=== PATIENT | female | born 1945 | race Caucasian/White ===

== ENCOUNTER 2021-12-05 21:47 | Emergency (ER) | payer MEDICARE, SELFPAY ==
[2021-12-05] VITALS (13 sets, daily range): BP systolic 91–108; BP diastolic 61–67; PULSE 65–78; RESP 12–23; TEMP 37.2; O2SAT 96–100
--- NOTE | ~2021-12-05 | CT_ITS ---
EXAMINATION: CT brain wo con DATE: 12/05/2021 22:47 INDICATION: head injury . TECHNIQUE: Computed tomography (CT) of the head was performed without intravenous contrast. The mA wa s adjusted according to patient size. Iterative reconstruction technique was employed. The dose-lengt h product was 605.33 mGy-cm. COMPARISON: None FINDINGS: No acute intracranial hemorrhage or extra-axial fluid collection. No hydrocephalus, mass, or herniation. No acute ischemic infarct. Unremarkable dural venous sinus attenuation. No acute osseous abnormality. The aerated spaces are clear. Moderate atrophy. Moderate chronic white matter change. Chronic left frontal lobe encephalomalacia an d volume loss, with enlargement of the anterior horn. Atherosclerotic intracranial calcification. IMPRESSION: No acute intracranial process. Reviewed, dictated and finalized at location K.
--- NOTE | ~2021-12-05 | XR_ITS ---
EXAM: XR elbow LT min 3V DATE: 12/05/2021 22:42 HISTORY: FALL,PT POOR HISTORIAN . COMPARISON: None available. FINDINGS: Decreased mineralization. No fracture or dislocation. No lytic or blastic lesion. Joint sp aces are maintained. No erosion or periosteal change. Soft tissues within normal limits. IMPRESSION: No acute osseous finding in the left elbow. Reviewed, dictated and finalized at location K.
--- NOTE | ~2021-12-05 | CT_ITS ---
EXAMINATION: CT facial & cervical spine wo DATE: 12/05/2021 22:47 INDICATION: facial inury, head injury TECHNIQUE: Computed tomography (CT) of the maxillofacial region and cervical spine was performed with out intravenous contrast. Automated exposure control and iterative reconstruction technique were empl oyed. The dose-length product was 115.35 mGy-cm. COMPARISON: CT brain, same date FINDINGS: CERVICAL: Vertebral Body Alignment: Intact. Craniocervical and atlantoaxial alignment: Moderate degenerative change. Alignment intact. Osseous structures/fracture: No evidence of a lytic or blastic process in the visualized spine. No e vidence of acute fracture. Cervical soft tissues: The paraspinal soft tissues planes are maintained. Degenerative changes: Multilevel degenerative disc disease, most severe at C5-6, where there is also severe left neural foraminal narrowing. No severe central canal stenosis. FACE: Soft Tissues: No significant superficial soft tissue swelling. Facial bones: No acute fracture. No lytic or blastic process. Eyes: The globes are intact. The soft tissue planes of the orbits are maintained. Paranasal Sinuses: The visualized aerated spaces are clear. Foreign Bodies: No radiopaque foreign bodies. Other Findings: None. IMPRESSION: No acute fracture or traumatic malalignment in the cervical spine. No acute facial bone fracture. Reviewed, dictated and finalized at location K. IMPRESSION: No acute fracture or traumatic malalignment in the cervical spine. No acute fac ial bone fracture.
--- NOTE | 2021-12-05 22:28 | ED.GENADULT ---
HPI - General Adult General Chief complaint: Fall Stated complaint: FALL Time Seen by Provider: 12/05/21 22:08 History of Present Illness HPI narrative: 76-year-old female presenting to the emergency department from a local group home for evaluation after having a ground-level fall. Patient does have an abrasion to her face and to her left elbow. Patient is unaware of any falls or injuries. Patient denies any complaints or pain at this time. Daughter states that the patient has been more fatigued lately. Patient is a DNI DNR. Patient has had decreased p.o. intake over the last few months and has had significant weight loss. Daughter is in discussion with palliative care and is also considering hospice. Related Data Allergies Allergy/AdvReac Type Severity Reaction Status Date / Time No Known Allergies Allergy Verified 12/06/21 00:09 Review of Systems Review of Systems: Patient denies complaints but was unsure if she fell and has severe dementia at baseline. ROS unobtainable: Yes unobtainable due to mental status Exam Narrative: APPEARANCE: Well appearing, no pain, no distress, well-nourished. HEAD: normocephalic, atraumatic. EYES: PERRLA/EOMI, conjunctivae clear. NOSE: Normal no drainage EARS:TMS clear with good light reflex. THROAT: Pharynx clear, no exudate. NECK: Supple. No adenopathy, no masses. RESPIRATORY: Airway patent, respirations nonlabored. Clear to auscultation bilaterally, no rales, rhonchi, wheezing. CARDIOVASCULAR: Regular rate and rhythm without murmurs rubs or gallops. ABDOMINAL: Soft, nontender, nondistended, normal bowel sounds MUSCULOSKELETAL: Moves all extremities. Strength/ROM intact, No edema, No calf tenderness. NEURO: Alert. Cranial nerves II through XII intact. Grossly intact at baseline. SKIN: Abrasion to face and left elbow Course Course Emergency Course: Patient's potassium was 2.3. Patient was given 40 p.o. and 20 IV. Admission was discussed with the patient and family and family prefers that the patient can go back to the care facility. Vital Signs Vital signs: Vital Signs Temperature 98.9 F 12/05/21 21:48 Pulse Rate 76 12/05/21 21:48 Respiratory Rate 18 12/05/21 21:48 Blood Pressure 92/67 L 12/05/21 21:48 Pulse Oximetry 99 12/05/21 21:48 Oxygen Delivery Room Air 12/05/21 21:48 Temperature 98.9 F 12/05/21 21:48 Pulse Rate 67 12/06/21 03:31 Respiratory Rate 11 L 12/06/21 03:31 Blood Pressure 110/53 L 12/06/21 02:31 Pulse Oximetry 98 12/06/21 03:31 Oxygen Delivery Room Air 12/05/21 22:12 Medical Decision Making Vital Signs Vital Signs: Vital Signs Temperature 98.9 F 12/05/21 21:48 Pulse Rate 76 12/05/21 21:48 Respiratory Rate 18 12/05/21 21:48 Blood Pressure 92/67 L 12/05/21 21:48 Pulse Oximetry 99 12/05/21 21:48 Oxygen Delivery Room Air 12/05/21 21:48 Temperature 98.9 F 12/05/21 21:48 Pulse Rate 67 12/06/21 03:31 Respiratory Rate 11 L 12/06/21 03:31 Blood Pressure 110/53 L 12/06/21 02:31 Pulse Oximetry 98 12/06/21 03:31 Oxygen Delivery Room Air 12/05/21 22:12 Lab Data Lab results reviewed: Yes I reviewed the patient's lab results. Result diagrams: 12/05/21 23:33 12/05/21 23:33 Labs: Lab Results 12/05/21 12/05/21 12/05/21 Range/Units 23:33 23:33 23:33 WBC 11.0 H (4.5-10.0) K/mm3 RBC 4.17 L (4.2-5.4) M/mm3 Hgb 12.3 (12.0-15.0) g/dL Hct 37.1 (37.0-47.0) % MCV 89.0 (80-100) fl MCH 29.5 (26-34) pg MCHC 33.2 (32-36) g/dl RDW 13.4 (11.5-14.5) % Plt Count 268 (150-375) k/mm3 MPV 9.0 (7.4-10.4) fl Immature Gran % (Auto) 0.5 (0-0.5) % Neut % (Auto) 83.9 H (45.5-73.1) % Lymph % (Auto) 9.2 L (18.3-44.2) % [place] % (Auto) 6.1 (2.6-8.5) % Eos % (Auto) 0.0 (0-4.4) % Baso % (Auto) 0.3 (0.2-1.2) % Lymph # (Auto) 1.01 (0.9-3.2) K/mm3 [place] # (Auto) 0.7 H (0.1-0.6) K/mm3
[2021-12-05 23:39] LABS: Basophils Percent Auto 0.3 % (0.2-1.2); Hematocrit 37.1 % (37.0-47.0); Hemoglobin 12.3 g/dL (12.0-15.0); Immature Granulocyte Absolute 0.06 K/mm3 (0.00-0.031); Immature Granulocyte Percent A 0.5 % (0-0.5); Lymphocytes Absolute Auto 1.01 K/mm3 (0.9-3.2); Lymphocytes Percent Auto 9.2 % (18.3-44.2); Mean Corpuscular HGB Conc 33.2 g/dl (32-36); Mean Corpuscular Hemoglobin 29.5 pg (26-34); Monocytes Absolute Auto 0.7 K/mm3 (0.1-0.6); Monocytes Percent Auto 6.1 % (2.6-8.5); Neutrophils Absolute Auto 9.3 K/mm3 (1.3-6.7); Neutrophils Percent Auto 83.9 % (45.5-73.1); Platelet Count Result 268 k/mm3 (150-375); Red Blood Count 4.17 M/mm3 (4.2-5.4); Red Cell Distribution Width 13.4 % (11.5-14.5)
[2021-12-06] VITALS (22 sets, daily range): BP systolic 93–126; BP diastolic 53–65; PULSE 64–76; RESP 10–23; O2SAT 96–100
[2021-12-06 00:03] LABS: Alanine Aminotransferase 39 U/L (6-35); Albumin Level 3.7 g/dL (3.5-5.1); Alkaline Phosphatase 91 U/L (38-126); Anion Gap 7 mmol/L (8-16); Aspartate Amino Transferase 40 U/L (14-36); Bilirubin,Total 1.9 mg/dL (0.2-1.3); Blood Urea Nitrogen 25 mg/dL (7-17); Calcium 8.3 mg/dL (8.4-10.2); Carbon Dioxide 36 mmol/L (22-30); Chloride 89 mmol/L (98-107); Estimated CRCL calculation 46 ml/min; Estimated Glomerular Filt Rate > 60; Glucose 110 mg/dL (65-110); Potassium 2.3 mmol/L (3.4-5.0); Sodium 132 mmol/L (137-145)
[2021-12-06 00:09] LABS: Appearance Urine Clear (Clear); Bilirubin Urine 3+ (Negative); Blood Urine Negative (Negative); Color Urine Amber (Yellow); Glucose Urine UA Negative (Negative); Ketones Urine 3+ mg/dL (Negative); Leukocyte Esterase Ur Negative LEU/UL (Negative); Nitrate Urine Negative (Negative); Protein Urine 1+ mg/dL (Negative); pH Urine 5.5 (5.0-9.0)
--- NOTE | 2021-12-06 00:11 | ECG_ITS ---
Measurements Intervals [place] Rate: 57 P: 9 MI: 157 QRS: -43 QRSD: 89 T: 268 QT: 425 QTc: 417 Interpretive Statements SINUS BRADYCARDIA POOR R WAVE PROGRESSION, ANTERIOR LEADS INFERIOR INFARCT, AGE INDETERMINATE ST-T WAVE ABNORMALITY IN ANTEROLATERAL LEADS- CONSIDER ISCHEMIA BASELINE ARTIFACT- I, II, III, AVR, AVL, AVF, V4-V6 ABNORMAL ECG Electronically Signed On 12-06-2021 6:16:49 CDT by Kermit Marrero D.O.
--- NOTE | 2021-12-06 00:15 | PC.NURSE ---
Pt wound cleansed with wound cleanser and, abx ointment with telfa dressing applied to left arm skin tears.
[2021-12-06 00:26] LABS: Bacteria Urine Trace /hpf; Mucus Urine Heavy /lpf; Squamous Epithelial Cell Urine Rare /hpf (Few); WBC Urine 0-3 /hpf
[2021-12-06 00:31] LABS: Add Urine Microscopic? YES
[2021-12-06] MEDS: KCL 20 MEQ/SW 100 ML 100 ML 50 MEQ IVPB (00:40)
[2021-12-06] MEDS: POTASSIUM CHLORIDE 20 MEQ PACKET (FOR LIQUID) 40 MEQ PO (00:40)
[2021-12-06 01:09] LABS: Magnesium 2.5 mg/dL (1.6-2.3)
--- NOTE | 2021-12-06 03:15 | PC.NURSE ---
called [facility] to request transport. ETA [phone]
--- NOTE | 2021-12-06 03:26 | PC.NURSE ---
[facility] called and updated ETA to [phone]
--- NOTE | 2021-12-06 04:21 | PC.NURSE ---
[facility] here
== END 2021-12-06 04:27 ==
PROVIDERS: Emergency Provider Emergency Medicine
DX: S00.81XA Abrasion of other part of head, initial encounter (principal); S50.312A Abrasion of left elbow, initial encounter; Z66 Do not resuscitate; E87.6 Hypokalemia; W18.30XA Fall on same level, unspecified, initial encounter; R00.1 Bradycardia, unspecified; R94.31 Abnormal electrocardiogram [ECG] [EKG]
CPT/HCPCS: 36415; 70450; 70486; 72125; 73080; 80053; 81001; 83735; 85025; 93005; 96365; 96366; 99284; A9270; J3480